=== PATIENT | male | born 1960 | race Two or more races ===

== ENCOUNTER → 2018-04-12 | Outpatient (CLI) | payer OTHER, MEDICAID | END | disposition home or self-care (01) | LOC: Rad HDHVI 08:02 | PROVIDERS: ATTEND Internal Medicine | DX: I08.1 Rheumatic disorders of both mitral and tricuspid valves (principal); E78.5 Hyperlipidemia, unspecified; R09.89 Other specified symptoms and signs involving the circulatory and respiratory systems | CPT/HCPCS: 93306; 93880 ==

== ENCOUNTER → 2018-04-21 | Outpatient (CLI) | payer OTHER, MEDICAID ==
[~2018-04-21] VITALS: Ht 170.2 cm; Wt 90.7 kg
[~2018-04-21] MED LIST: ADENOSINE 76 MG in GIVE UN-DILUTED 0 ML IV ONE; ADENOSINE 90 MG/30 ML INJ IV ONE
== END | disposition home or self-care (01) ==
LOC: Rad HDHVI 09:05
PROVIDERS: ATTEND Internal Medicine
DX: I10 Essential (primary) hypertension (principal); E78.5 Hyperlipidemia, unspecified; E03.9 Hypothyroidism, unspecified; M19.90 Unspecified osteoarthritis, unspecified site; R09.89 Other specified symptoms and signs involving the circulatory and respiratory systems; F09 Unspecified mental disorder due to known physiological condition; G47.33 Obstructive sleep apnea (adult) (pediatric); H26.9 Unspecified cataract
CPT/HCPCS: 78452; 93005; 96374; 96375; A9500; J0153